=== PATIENT | female | born 1970 | race African-American/Black ===

== ENCOUNTER → 2017-07-23 | Outpatient (CLI) | payer OTHER ==
--- NOTE | 2017-07-23 11:31 | Diagnostic Imaging Report ---
PROCEDURE:CHEST 2 VIEWS TECHNIQUE:PA and lateral chest INDICATION:Bronchitis COMPARISON:None. FINDINGS: Normal lungs. No pleural effusions. Normal heart size, mediastinal contour, pulmonary vasculature. Normal skeleton. CONCLUSION: Normal study. Dictated by: Jeffrey Corbin M.D. on 07/23/2017 at 11:32 Electronically approved by: Jeffrey Corbin M.D. on 07/23/2017 at 11:32
== END ==
LOC: RAD 10:50
PROVIDERS: ATTEND Family Medicine
DX: J40 Bronchitis, not specified as acute or chronic (principal)
CPT/HCPCS: 71046

== ENCOUNTER 2019-01-10 03:15 | Emergency (ER) | payer OTHER ==
[~2019-01-10] VITALS: Ht 162.6 cm; Wt 70.3 kg
--- OUTSIDE RECORDS SUMMARY | 2019-01-10 03:17 | XMS REPORT | Clinical Summary ---
Author Author [facility] Address Unknown Phone Unavailable Care Team Providers Care Central Service Tech Name Role Phone Darrin Ly MD PCP Allergies Comments Active Allergy Reactions Severity Noted Date Metronidazole 04/04/2016 Hydrocodone-Acetaminophen 04/04/2016 Medications End Date Status Medication Sig Dispensed Refills Start Date Active B INFANTIS/B ANI/B MAZIN/B Take 1 tablet 0 BIFID (PROBIOTIC 4X ORAL) by mouth. Active MULTIVIT-MIN #14/FOLIC Take by 0 ACID (MULTIVIT W-MIN mouth. 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 Office Visit Orthopedic Surgery Elayne Arthur MA Right knee pain, unspecified chronicity (Primary Dx) 01/23/2018 Orders Only Orthopedic Surgery after 01/09/2018 Family History Medical History Relation Name Comments Alcohol abuse Father Artem Heart disease Father Artem Hypertension Father Artem Diabetes Maternal Clevie Grandmother Relation Name Status Comments Father Artem Alive Maternal Grandmother Clevie Mother Alive diabetes Heart disease Social History Date Tobacco Use Types Packs/Day Years Used Never Smoker Smokeless Tobacco: Never Used Drinks/Week oz/Week Comments Alcohol Use 4 Shots of liquor 4.0 4 liquor weekly Yes Sex Assigned at Date Recorded Not on file Industry Job Start Date Occupation Not on file Not on file Not on file Travel End Travel History Travel Start No recent travel history available. Last Filed Vital Signs Reading Time Taken Comments Vital Sign - - Blood Pressure - - Pulse - - Temperature - - Respiratory Rate - - Oxygen Saturation - - Inhaled Oxygen Concentration 77.1 kg (170 lb) 01/26/2018 10:59 AM CDT Weight 162.6 cm (5' 4") 01/26/2018 10:59 AM CDT Height 29.18 01/26/2018 10:59 AM CDT Body Mass Index Plan of Treatment Health Maintenance Due Date Last Done Comments INFLUENZA VACCINE 11/19/2018 CERVICAL CANCER SCREENING 07/26/2019 07/25/2016 Implants Device Identifier Shelf Expiration Date Model / Serial / Lot Implanted Type Area Manufactur er 05/21/2017 [id number] / / [id number] [employer]tainr [employer]sm[employer] Visceral - Surgical N/A: N/A ADEPT [id number] Implants; Implanted: 07/25/2016 at [facility] Expanders; HOSPITAL (Quantity not on file) Extenders; Surgical Wires Procedures Comments Procedure Name Priority Date/Time Associated Diagnosis XR KNEE 4+ VW RIGHT Routine 01/26/2018 Right knee pain, 11:10 AM CDT unspecified chronicity after 01/09/2018 Results * XR Knee 4+ Vw Right (01/26/2018 11:10 AM CDT) Specimen Narrative Performed At [facility] Four views (standing bilateral weightbearing AP and 45 degree flexion PA, Merchant, and lateral views) of the right knee are obtained and reviewed today. There is mild degenerative change of the medial tibiofemoral joint spaces with marginal osteophytes.No fractures or loose bodies are seen. No abnormal soft tissue calcifications are seen. Performing Organization Address City/State/Zipcode Phone Number [facility] [address] [place] [address] after 01/09/2018 Insurance Type Payer Benefit Subscriber ID Effective Phone Address Plan / Dates Group HMO/PPO [employer] xxxxxxxxx 2015-P THCARE resent CHOICE/CHO ICE + Advance Directives For more information, please contact: [phone] Patient Sample Cutter Explanation Type Date Recorded Advance Directives, Living Will and Medical Power of Software Clerk
--- OUTSIDE RECORDS SUMMARY | 2019-01-10 03:17 | XMS REPORT ---
[facility] Address Unknown Phone Unavailable Care Team Providers Care Plastic Extrusion Operator Name Role Phone JESSICA NIETO Unavailable Unavailable Problems This patient has no known problems. Allergies, Adverse Reactions, Alerts This patient has no known allergies or adverse reactions. Medications This patient has no known medications. Results Test Description Test Time Test Comments Text Results Atomic Results Result Comments CHEST 2 VIEWS [place] [address] Patient Name: DAVE CONLEY MR #: [id number] : 1970 Age/Sex: 46/F Req #: [id number] Adm Physician: Ordered by: JESSICA NIETO MD Report #: [id number] Location: [facility] Room/Bed: Procedure: [id number] DX/CHEST 2 VIEWS Exam Date: 07/23/17 Exam Time: 1105 REPORT STATUS: Signed PROCEDURE: CHEST 2 VIEWS TECHNIQUE: PA and lateral chest INDICATION: Bronchitis COMPARISON: None. FINDINGS: Normal lungs. No pleural effusions. Normal heart size, mediastinal contour, pulmonary vasculature. Normal skeleton. CONCLUSION: Normal study. Dictated by: Zackery Horowitz M.D. on 07/23/2017 at 11:32 Electronically approved by: Zackery Horowitz M.D. on 07/23/2017 at 11:32 Dictated By: ZACKERY HOROWITZ MD 113 Transcribed By: IKE on 07/23/171131 COPY TO: JESSICA NIETO MD
--- OUTSIDE RECORDS SUMMARY | 2019-01-10 03:17 | XMS REPORT | Continuity of Care Document ---
Author Author [facility] Organization [facility] Address Unknown Phone Unavailable Care Team Providers Care Inventory Control Associate Name Role Phone [employer] Information SIVI Unavailable Unavailable Problems Problem Status Onset Date Classification Date Reported Comments Source R10.9 - UNSPECIFIED ABDOMINAL PAIN Active 04/12/2016 [facility] Z12.31 - ENCNTR SCREEN MAMMOGRAM FOR MA Active 03/25/2016 [facility] Discharge Diagnosis: Acute lower UTI (urinary tract infection) 03/22/2016 03/25/2016 [facility] ABDOMINAL PN Active 02/21/2016 [facility] 466.0 - ACUTE BRONCHITI Active 08/29/2011 [facility] Pain Active Problem 12/09/2012 [facility] Acute lower urinary tract infection (disorder) Active Problem 04/26/2016 [facility] Pain (finding) Active Problem 04/26/2016 [facility] Medications Medication Details Route Status Patient Instructions Ordering Provider Order Date Source Acetaminophen 300 MG / Codeine Phosphate 30 MG Oral Tablet [Tylenol with Codeine #3] 1 - 2 tab, PO, Q6H, PRN Pain, X 4 day, # 32 tab, 0 Refill(s) Active 03/22/2016 [facility] Acetaminophen 300 MG / Codeine Phosphate 30 MG Oral Tablet [Tylenol with Codeine #3] 2 tab, Route: PO, Drug Form: TAB, Dosing Weight 72.727, kg, ONCE, STAT, Start date: 03/22/16 15:24:00 IRRIGATION TECHNICIAN, Stop date: 03/22/16 15:24:00 CSTNotes: Do not exceed 4gm/day of acetaminophen. (Same as: Tylenol with Codeine # 3) Inactive 03/22/2016 [facility] Rocephin 1 gm, Route: IVPB, Drug form: PDR/INJ, ONCE, Dosing Weight 72.727, kg, Priority: STAT, Start date: 03/22/16 15:23:00 IRRIGATION TECHNICIAN, Stop date: 03/22/16 15:23:00 CSTNotes: (Same As: Rocephin). Use with 100 mL NS and infuse over 30 min MEDICATION WASTE Product Size: 1000 mg Product Wasted: ___ mg Inactive 03/22/2016 [facility] Sodium Chloride 0.154 MEQ/ML Injectable Solution 1,000 mL, 1000 ml/hr, Infuse Over: 1 hr, Route: IV, 1,000, Drug form: INJ, ONCE, Priority: STAT, Dosing Weight 72.727 kg, Start date: 03/22/16 15:23:00 IRRIGATION TECHNICIAN, Duration: 1 doses or times, Stop date: 03/22/16 15:23:00 IRRIGATION TECHNICIAN Inactive 03/22/2016 [facility] Ciprofloxacin 500 MG Oral Tablet [Cipro] 500 mg=1 tab, PO, Q12H, X 10 day, # 20 tab, 0 Refill(s) Active 03/22/2016 [facility] Ketorolac 60 mg, Route: IM, Drug form: INJ, ONCE, Dosing Weight 72.727, kg, Priority: STAT, Start date: 03/22/16 14:06:00 IRRIGATION TECHNICIAN, Stop date: 03/22/16 14:06:00 IRRIGATION TECHNICIAN Inactive 03/22/2016 [facility] Allergies, Adverse Reactions, Alerts Substance Category Reaction Severity Reaction type Status Date Reported Comments Source Flagyl Assertion Drug allergy Active [facility] Vicodin Assertion Drug allergy Active [facility] Immunizations No Data Provided for This Section Results Order Name Results Value Reference Range Date Interpretation Comments Source CHEM PANEL Lipase Lvl 154 73 - 393 03/22/2016 [facility] CHEM PANEL Globulin 5.2 2.7 - 4.2 03/22/2016 [facility] CHEM PANEL A/G Ratio 0.7 0.7 - 1.6 03/22/2016 [facility] CHEM PANEL B/C Ratio 18 6 - 25 03/22/2016 [facility] CHEM PANEL AGAP 16.4 10.0 - 20.0 03/22/2016 [facility] CHEM PANEL eGFR 123 03/22/2016 Result Comment: The eGFR is calculated using the CKD-EPI formula. In most young, healthy individuals the eGFR will be >90 mL/min/1.73m2. The eGFR declines with age. An eGFR of 60-89 may be normal in some populations, particularly the elderly, for whom the CKD-EPI formula has not been extensively validated. Use of the eGFR is not recommended in the following populations:

Individuals with unstable creatinine concentrations, including patients and those with serious co-morbid conditions.

Patients with extremes in muscle mass or diet.

The data above are obtained from the National Kidney Disease Education Program (NKDEP) which additionally recommends that when the eGFR is used in patients with extremes of body mass index for purposes of drug dosing, the eGFR should be multiplied by the estimated BMI. [facility] CHEM PANEL Total Protein 8.8 6.4 - 8.4 03/22/2016 [facility] CHEM PANEL Albumin Lvl 3.6 3.5 - 5.0 03/22/2016 [facility] CHEM PANEL AST 35 0 - 37 03/22/2016 [facility] CHEM PANEL ALT 58 0 - 65 03/22/2016 [facility] CHEM PANEL Alk Phos 117 39 - 136 03/22/2016 [facility] CHEM PANEL Bili Total 0.5 0.2 - 1.3 03/22/2016 [facility] CHEM PANEL Creatinine Lvl 0.67 0.50 - 1.40 03/22/2016 [facility] CHEM PANEL BUN 12 7 - 22 03/22/2016 [facility] CHEM PANEL Glucose Lvl 119 70 - 99 03/22/2016 [facility] CHEM PANEL Potassium Lvl 3.4 3.5 - 5.1 03/22/2016 [facility] CHEM PANEL Sodium Lvl 138 135 - 145 03/22/2016 [facility] CHEM PANEL Chloride Lvl 100 95 - 109 03/22/2016 [facility] CHEM PANEL Calcium Lvl 10.1 8.5 - 10.5 03/22/2016 [facility] CHEM PANEL CO2 25 24 - 32 03/22/2016 [facility] HEMATOLOGY MCHC 32.7 32.0 - 36.0 03/22/2016 [facility] HEMATOLOGY MCH 24.7 27.0 - 31.0 03/22/2016 [facility] HEMATOLOGY MCV 75.6 80.0 - 98.0 03/22/2016 [facility] HEMATOLOGY Hct 34.1 36.0 - 48.0 03/22/2016 [facility] HEMATOLOGY Hgb 11.1 12.0 - 16.0 03/22/2016 [facility] HEMATOLOGY RBC 4.51 4.20 - 5.40 03/22/2016 [facility] HEMATOLOGY WBC 12.7 3.7 - 10.4 03/22/2016 [facility] HEMATOLOGY RDW 21.0 11.5 - 14.5 03/22/2016 [facility] HEMATOLOGY MPV 8.1 7.4 - 10.4 03/22/2016 [facility] HEMATOLOGY Platelet 495 133 - 450 03/22/2016 [facility] HEMATOLOGY Microcyte 1+ *ABN* (03/22/16 1:00 PM) None Seen 03/22/2016 [facility] HEMATOLOGY Eosinophils # 0.1 0.0 - 0.5 03/22/2016 [facility] HEMATOLOGY Lymphocytes # 1.5 1.0 - 5.5 03/22/2016 [facility] HEMATOLOGY Segs-Bands # 9.0 1.5 - 8.1 03/22/2016 [facility] HEMATOLOGY Basophils 0.3 0.0 - 1.0 03/22/2016 [facility] HEMATOLOGY Eosinophils 0.4 0.0 - 4.0 03/22/2016 [facility] HEMATOLOGY Monocytes 17.0 2.0 - 12.0 03/22/2016 [facility] HEMATOLOGY Lymphocytes 11.7 20.0 - 40.0 03/22/2016 [facility] HEMATOLOGY Segs 70.6 45.0 - 75.0 03/22/2016 [facility] HEMATOLOGY Monocytes # 2.2 0.0 - 0.8 03/22/2016 [facility] URINE AND STOOL UA Nitrite Negative (03/22/16 1:00 PM) Negative 03/22/2016 [facility] URINE AND STOOL UA Urobilinogen 0.2 0.1 - 1.0 03/22/2016 [facility] URINE AND STOOL UA Leuk Est Small *ABN* (03/22/16 1:00 PM) Negative 03/22/2016 [facility] URINE AND STOOL UA Spec Grav 1.021 <=1.030 03/22/2016 [facility] URINE AND STOOL UA pH 6.0 5.0 - 8.0 03/22/2016 [facility] URINE AND STOOL UA Glucose Negative (03/22/16 1:00 PM) Negative 03/22/2016 [facility] URINE AND STOOL UA Protein 30 mg/dL Negative mg/dL 03/22/2016 [facility] URINE AND STOOL UA Ketones Trace *ABN* (03/22/16 1:00 PM) Negative 03/22/2016 [facility] URINE AND STOOL UA Blood Small *ABN* (03/22/16 1:00 PM) Negative 03/22/2016 [facility] URINE AND STOOL UA Bili Negative *NA* (03/22/16 1:00 PM) Negative 03/22/2016 [facility] URINE AND STOOL UA Color Yellow *NA* (03/22/16 1:00 PM) Yellow 03/22/2016 [facility] URINE AND STOOL UA Turbidity Slight Cloudy (03/22/16 1:00 PM) Clear 03/22/2016 [facility] URINE AND STOOL UA Mucus Moderate /LPF None Seen /LPF 03/22/2016 [facility] URINE AND STOOL UA Bacteria Moderate /HPF None Seen /HPF 03/22/2016 [facility] URINE AND STOOL UA WBC 11-20 /HPF None Seen /HPF 03/22/2016 [facility] URINE AND STOOL UA RBC 3-5 /HPF 0 - 2 03/22/2016 [facility] URINE AND STOOL UA Sq Epi Moderate /LPF Few /LPF 03/22/2016 [facility] URINE CHEM U Preg Negative (03/22/16 1:00 PM) Negative 03/22/2016 [facility] Pathology Reports No Data Provided for This Section Diagnostic Reports Report Value Date Source Abdomen/Pelvis w/wo IV contrast CT CT of the abdomen and pelvis without and with contrast Clinical history: R10.9 Unspecified abdominal pain. Sex: Female. : 1970. Technique: CT of the abdomen and pelvis with intravenous contrast using 100 cc of Omnipaque 300 including multiplanar computer reformations. Total Dose Length Product: 1567. COMPARISON: March 26, 2016 ultrasound. Hysterosalpingogram on January 01, 2015. Findings: Lung bases show left basilar subsegmental atelectasis. Small hiatus hernia is present. The liver, gallbladder, spleen appear unremarkable. Adrenal glands and pancreas are unremarkable. A linear defect within the periphery of the mid pole of the right kidney association with hyperdense linear perinephric foci suggestive of small amount of hematoma and possible site of prior intervention. No inflammatory changes to suggest an acute component. No mass lesion. Left kidney is unremarkable. Stomach, small bowel, colon appear unremarkable. Appendix is not visualized, however no inflammatory changes to suggest appendicitis. Numerous uterine fibroids identified. Serpiginous fluids density tubular structure is compatible with right hydrocele salpinx. Additionally, serpiginous tubular structure within the left hemipelvis is also present suggestive of an additional hydrosalpinx. Follicles within the left ovaries noted. Free fluid is present within the pelvis. Bladder is unremarkable. No free air. IVC and aorta appear unremarkable. Osseous structures are unremarkable. Impression: 1. Findings suggestive of bilateral hydrosalpinx. Correlate with physical exam to exclude a superimposed infection. 2. Uterine fibroids. 3. Defect within the midpole of the right kidney associated with small amount of nonacute perinephric hematoma may be reflective of prior instrumentation. Correlate with surgical history. 04/23/2016 [facility] Pelvis w Pelvis Transvaginal US Exam: Pelvic ultrasound. Reason for Exam: Pelvic mass Comparison Exam: MRI 01/28/2007 and ultrasound 01/01/2005 Discussion: Multiple axial and sagittal images of the pelvis were obtained transabdominally and transvaginally. The uterus is enlarged and measures 16.7 cm in length. Numerous fibroids are identified. This is a chronic finding. Endometrial stripe cannot be accurately measured secondary to the multiple fibroids. Within the right adnexa is a complex cystic structure measuring 9.5 x 9.3 x 7.3 cm. This cystic structure likely contains the right ovary. Note is made of diminished venous flow and arterial flow. These findings are suggestive of partial torsion. The left ovary measures 2.7 x 2.3 x 1.6 cm. It is of normal echogenicity without focal masses. Doppler and waveform evaluations of the left ovary are unremarkable. Mild free fluid seen within the pelvic cul-de-sac. The bladder is unremarkable in appearance. Findings discussed with Dr. Hickman on 03/26/2016 at 1757 hours. Impression: 1. Complex cystic structure seen within the right adnexa measuring up to 9.5 cm which likely contains the ovary itself. Note is made of diminished venous flow and arterial flow. These findings are suggestive of partial torsion. 03/26/2016 [facility] Digital Mammo Screening Rola MA - DIGITAL MAMMO SCREENING ROLA MA BILATERAL DIGITAL SCREENING MAMMOGRAM WITH CAD: 03/26/2016 CLINICAL: Routine. Current study was evaluated with a Computer Aided Detection (CAD) system. No prior exams were available for comparison. The tissue of both breasts is heterogeneously dense, which could obscure detection of small masses. There are benign calcifications in the left breast. No significant masses, calcifications, or other findings are seen in either breast. IMPRESSION: BENIGN There is no mammographic evidence of malignancy. A 1 year screening mammogram is recommended. Professional services are provided by the [facility] M.D[facility] Division of Diagnostic Imaging. Pavel Nevarez M.D., cm/penrad:04/08/2016 15:48:37 Cafeteria Director: Margo JAFFE)(Coral), [facility] This exam was dictated and interpreted by [id number] for KAREN Delatorre 15. letter sent: Normal exam Mammogram BI-RADS: 2 Benign 03/26/2016 [facility] Knee AP and lateral Examination: Right knee, 2 views History: KNEE SWELLING Comparison: None. Findings: Multiple views of the right knee show no acute bony fracture, joint dislocation, or suspicious osseous lesion. No significant joint effusion is seen. The soft tissues are unremarkable. IMPRESSION: No significant abnormality of the right knee. 12/07/2012 [facility] Consultation Notes No Data Provided for This Section Discharge Summaries No Data Provided for This Section History and Physicals No Data Provided for This Section Vital Signs Vital Sign Value Date Comments Source Temperature Oral (F) 98.6 F 03/22/2016 [facility] Systolic (mm Hg) 117 03/22/2016 [facility] Diastolic (mm Hg) 73 03/22/2016 [facility] Respitory Rate 16 03/22/2016 [facility] Systolic (mm Hg) 120 03/22/2016 [facility] Diastolic (mm Hg) 68 03/22/2016 [facility] Respitory Rate 16 03/22/2016 [facility] Temperature Oral (F) 100.6 F 03/22/2016 [facility] Respitory Rate 18 03/22/2016 [facility] Weight 72.727 03/22/2016 [facility] BMI Calculated 25.11 03/22/2016 [facility] Heart Rate 108 03/22/2016 [facility] Systolic (mm Hg) 125 03/22/2016 [facility] Diastolic (mm Hg) 83 03/22/2016 [facility] Height 170.18 cm 03/22/2016 [facility] Encounters Location Location Details Encounter Type Encounter Number Reason For Visit Attending Provider ADM Date DC Date Status Source OD [id number] 466.0 - ACUTE BRONCHITI VU EMILIA [facility]/2011 [id number] Bessie Damon 03/22/2016 03/22/2016 [facility] [id number] Cristofer Hickman 03/26/2016 [facility] Out[facility] Di[facility] Services [id number] Nabor Gabriel [facility]/23[facility]2016 [facility] Procedures No Data Provided for This Section Assessment and Plan No Data Provided for This Section Plan of Care No Data Provided for This Section Social History Social History Date Source Social History TypeResponse Smoking Status Never smoker; Exposure to Tobacco Smoke None; Cigarette Smoking Last 365 Days No; Reg Smoking Cessation Counseling No [facility]22[facility] Social History TypeResponse Smoking Status Never smoker; Exposure to Tobacco Smoke None; Cigarette Smoking Last 365 Days No; Reg Smoking Cessation Counseling No 03/22/2016 [facility] Family History No Data Provided for This Section Advance Directives No Data Provided for This Section Functional Status No Data Provided for This Section
--- OUTSIDE RECORDS SUMMARY | 2019-01-10 03:17 | XMS REPORT | Summary of Care ---
Author Author [facility] Organization [facility] Address Unknown Phone Unavailable Encounter HQ Encntr_alipablo(FIN) [id number] Date(s): 03/26/16 - 03/26/16 [facility] [address] [place] [phone] Discharge Disposition: Home or Self Care Attending Physician: Cristofer Hickman MD Vital Signs No data available for this section Problem List Condition Effective Dates Status Health Status Informant Acute lower UTI Active (urinary tract infection)(Confirmed ) Pain(Confirmed) Active Allergies, Adverse Reactions, Alerts Substance Reaction Severity Status Flagyl Active Vicodin Active Medications No data available for this section Results No data available for this section Immunizations No data available for this section Procedures No data available for this section Social History Social History Type Response Smoking Status Never smoker; Exposure to Tobacco Smoke None; Cigarette Smoking Last 365 Days No; Reg Smoking Cessation Counseling No Assessment and Plan No data available for this section
--- OUTSIDE RECORDS SUMMARY | 2019-01-10 03:17 | XMS REPORT | Summary of Care ---
Author Author [facility] [place] Organization [facility] [place] Address Unknown Phone Unavailable Encounter [facility] [email or web address]_alipablo(FIN) [id number] Date(s): 04/23/16 - 04/23/16 [facility] [place] [address] [place] [phone] Discharge Disposition: Home or Self Care Attending Physician: Nabor Gabriel MD Vital Signs No data available for [...]
--- OUTSIDE RECORDS SUMMARY | 2019-01-10 03:17 | XMS REPORT | CCD ---
Author Author [employer] Organization [facility] [place] Address Unknown Phone Unavailable Care Team Providers Care Salesperson New Cars Name Role Phone Darrin Ly CP Allergies, Adverse Reactions, Alerts Substance Reaction Status Flagyl Active Vicodin Active Problem List Condition Effective Dates Status Pain Active
--- OUTSIDE RECORDS SUMMARY | 2019-01-10 03:17 | XMS REPORT | Summary of Care ---
Author Author [facility] Organization [facility] Address Unknown Phone Unavailable Encounter ANDREW Nguyen(LUIS) [id number] Date(s): 03/22/16 - 03/22/16 [facility] [address] [employer] provided by [facility] [place] [address]- Discharge Diagnosis: Acute lower UTI (urinary tract infection) Discharge Disposition: Home or Self Care Attending Physician: Bessie Damon MD Vital Signs 1 2 3 Most recent to oldest [Reference Range]: 170.18 cm (03/22/16 12:45 PM) Height 98.6 DegF (03/22/16 5:45 PM) 100.6 DegF *HI* (03/22/16 3:19 PM) Temperature Oral [96.4-99.1 DegF] 117/73 mmHg (03/22/16 5:45 PM) 120/68 mmHg (03/22/16 3:19 PM) 125/83 mmHg (03/22/16 12:45 PM) Blood Pressure [90-140/60-90 mmHg] 16 BRMIN (03/22/16 5:45 PM) 16 BRMIN (03/22/16 3:19 PM) 18 BRMIN (03/22/16 12:45 PM) Respiratory Rate [14-20 BRMIN] 108 bpm *HI* (03/22/16 12:45 PM) Peripheral Pulse Rate [60-100 bpm] 72.727 kg (03/22/16 12:45 PM) Weight 25.11 m2 (03/22/16 12:45 PM) Body Mass Index Problem List Condition Effective Dates Status Health Status Informant Acute lower UTI Active (urinary tract infection)(Confirmed ) Pain(Confirmed) Active Allergies, Adverse Reactions, Alerts Substance Reaction Severity Status Flagyl Active Vicodin Active Medications Cipro 500 mg oral tablet 500 mg=1 tab, PO, Q12H, X 10 day, # 20 tab, 0 Refill(s) Start Date: 03/22/16 Stop Date: 04/01/16 Status: Ordered ketOROLAC 60 mg, Route: IM, Drug form: INJ, ONCE, Dosing Weight 72.727, kg, Priority: STAT , Start date: 03/22/16 14:06:00 DIRECTOR OF CARDIOLOGY SERVICE LINE, Stop date: 03/22/16 14:06:00 DIRECTOR OF CARDIOLOGY SERVICE LINE Start Date: 03/22/16 Stop Date: 03/22/16 Status: Completed Rocephin 1 gm, Route: IVPB, Drug form: PDR/INJ, ONCE, Dosing Weight 72.727, kg, Priority: STAT, Start date: 03/22/16 15:23:00 DIRECTOR OF CARDIOLOGY SERVICE LINE, Stop date: 03/22/16 15:23:00 DIRECTOR OF CARDIOLOGY SERVICE LINE Notes: (Same As: Rocephin).Use with 100 mL NS and infuse over 30 min MEDICA TION WASTE Product Size: 1000 mgProduct Wasted: ___ mg Start Date: 03/22/16 Stop Date: 03/22/16 Status: Completed Sodium Chloride 0.9% (Bolus) IV 1,000 mL, 1000 ml/hr, Infuse Over: 1 hr, Route: IV, 1,000, Drug form: INJ, ONCE, Priority: STAT, Dosing Weight 72.727 kg, Start date: 03/22/16 15:23:00 DIRECTOR OF CARDIOLOGY SERVICE LINE, Dur ation: 1 doses or times, Stop date: 03/22/16 15:23:00 DIRECTOR OF CARDIOLOGY SERVICE LINE Start Date: 03/22/16 Stop Date: 03/22/16 Status: Completed Tylenol with Codeine #3 oral tablet 1 - 2 tab, PO, Q6H, PRN Pain, X 4 day, # 32 tab, 0 Refill(s) Start Date: 03/22/16 Stop Date: 03/26/16 Status: Ordered Tylenol with Codeine #3 oral tablet 2 tab, Route: PO, Drug Form: TAB, Dosing Weight 72.727, kg, ONCE, STAT, Start da te: 03/22/16 15:24:00 DIRECTOR OF CARDIOLOGY SERVICE LINE, Stop date: 03/22/16 15:24:00 DIRECTOR OF CARDIOLOGY SERVICE LINE Notes: Do not exceed 4gm/day of acetaminophen. (Same as: Tylenol with Codeine # 3) Start Date: 03/22/16 Stop Date: 03/22/16 Status: Completed Results ELECTROLYTES Most recent to 1 oldest [Reference Range]: Sodium Lvl [135-145 138 mEq/L mEq/L] (03/22/16 1:00 PM) Potassium Lvl 3.4 mEq/L [3.5-5.1 mEq/L] *LOW* (03/22/16 1:00 PM) Chloride Lvl [95-109 100 mEq/L mEq/L] (03/22/16 1:00 PM) CO2 [24-32 mEq/L] 25 mEq/L (03/22/16 1:00 PM) AGAP [10.0-20.0 16.4 mEq/L mEq/L] (03/22/16 1:00 PM) CHEM PANEL Most recent to 1 oldest [Reference Range]: Creatinine Lvl 0.67 mg/dL [0.50-1.40 mg/dL] (03/22/16 1:00 PM) eGFR 123 mL/min/1.73m2 1 *NA* (03/22/16 1:00 PM) BUN [7-22 mg/dL] 12 mg/dL (03/22/16 1:00 PM) B/C Ratio [6-25] 18 (03/22/16 1:00 PM) Glucose Lvl [70-99 119 mg/dL mg/dL] *HI* (03/22/16 1:00 PM) Total Protein 8.8 g/dL [6.4-8.4 g/dL] *HI* (03/22/16 1:00 PM) Albumin Lvl [3.5-5.0 3.6 g/dL g/dL] (03/22/16 1:00 PM) Globulin [2.7-4.2 5.2 g/dL g/dL] *HI* (03/22/16 1:00 PM) A/G Ratio [0.7-1.6] 0.7 (03/22/16 1:00 PM) Calcium Lvl 10.1 mg/dL [8.5-10.5 mg/dL] (03/22/16 1:00 PM) ALT [0-65 unit/L] 58 unit/L (03/22/16 1:00 PM) AST [0-37 unit/L] 35 unit/L (03/22/16 1:00 PM) Alk Phos [39-136 117 unit/L unit/L] (03/22/16 1:00 PM) Bili Total [0.2-1.3 0.5 mg/dL mg/dL] (03/22/16 1:00 PM) Lipase Lvl [73-393 154 unit/L unit/L] (03/22/16 1:00 PM) 1Result Comment: The eGFR is calculated using the [...] from the National Kidney Disease Education Program ( NKDEP) which additionally recommends that when the eGFR is used in patients with extremes of body mass index for purposes of drug dosing, the eGFR should be mul tiplied by the estimated BMI. URINE CHEM Most recent to 1 oldest [Reference Range]: U Preg [Negative] Negative (03/22/16 1:00 PM) URINE AND STOOL Most recent to 1 oldest [Reference Range]: UA Turbidity [Clear] Slight Cloudy (03/22/16 1:00 PM) UA Color [Yellow] Yellow *NA* (03/22/16 1:00 PM) UA pH [5.0-8.0] 6.0 (03/22/16 1:00 PM) UA Spec Grav 1.021 [<=1.030] *NA* (03/22/16 1:00 PM) UA Glucose Negative [Negative] (03/22/16 1:00 PM) UA Blood [Negative] Small *ABN* (03/22/16 1:00 PM) UA Ketones Trace [Negative] *ABN* (03/22/16 1:00 PM) UA Protein [Negative 30 mg/dL mg/dL] *ABN* (03/22/16 1:00 PM) UA Urobilinogen 0.2 EU/dL [0.1-1.0 EU/dL] (03/22/16 1:00 PM) UA Bili [Negative] Negative *NA* (03/22/16 1:00 PM) UA Leuk Est Small [Negative] *ABN* (03/22/16 1:00 PM) UA Nitrite Negative [Negative] (03/22/16 1:00 PM) UA WBC [None Seen 11-20 /HPF /HPF] *ABN* (03/22/16 1:00 PM) UA RBC [0-2 /HPF] 3-5 /HPF *ABN* (03/22/16 1:00 PM) UA Bacteria [None Moderate /HPF Seen /HPF] (03/22/16 1:00 PM) UA Sq Epi [Few /LPF] Moderate /LPF *ABN* (03/22/16 1:00 PM) UA Mucus [None Seen Moderate /LPF /LPF] *ABN* (03/22/16 1:00 PM) HEMATOLOGY Most recent to 1 oldest [Reference Range]: WBC [3.7-10.4 K/CMM] 12.7 K/CMM *HI* (03/22/16 1:00 PM) RBC [4.20-5.40 4.51 M/CMM M/CMM] (03/22/16 1:00 PM) Hgb [12.0-16.0 g/dL] 11.1 g/dL *LOW* (03/22/16 1:00 PM) Hct [36.0-48.0 %] 34.1 % *LOW* (03/22/16 1:00 PM) MCV [80.0-98.0 fL] 75.6 fL *LOW* (03/22/16 1:00 PM) MCH [27.0-31.0 pg] 24.7 pg *LOW* (03/22/16 1:00 PM) MCHC [32.0-36.0 32.7 g/dL g/dL] (03/22/16 1:00 PM) RDW [11.5-14.5 %] 21.0 % *HI* (03/22/16 1:00 PM) Platelet [133-450 495 K/CMM K/CMM] *HI* (03/22/16 1:00 PM) MPV [7.4-10.4 fL] 8.1 fL (03/22/16 1:00 PM) Segs [45.0-75.0 %] 70.6 % (03/22/16 1:00 PM) Lymphocytes 11.7 % [20.0-40.0 %] *LOW* (03/22/16 1:00 PM) Monocytes [2.0-12.0 17.0 % %] *HI* (03/22/16 1:00 PM) Eosinophils [0.0-4.0 0.4 % %] (03/22/16 1:00 PM) Basophils [0.0-1.0 0.3 % %] (03/22/16 1:00 PM) Segs-Bands # 9.0 K/CMM [1.5-8.1 K/CMM] *HI* (03/22/16 1:00 PM) Lymphocytes # 1.5 K/CMM [1.0-5.5 K/CMM] (03/22/16 1:00 PM) Monocytes # [0.0-0.8 2.2 K/CMM K/CMM] *HI* (03/22/16 1:00 PM) Eosinophils # 0.1 K/CMM [0.0-0.5 K/CMM] (03/22/16 1:00 PM) Microcyte [None 1+ Seen] *ABN* (03/22/16 1:00 PM) Immunizations No data available for this section Procedures No data available for this section Social History Social History Type Response Smoking Status Never smoker; Exposure to Tobacco Smoke None; Cigarette Smoking Last 365 Days No; Reg Smoking Cessation Counseling No Assessment and Plan No data available for this section
[2019-01-10 04:11] LABS: BASOPHILS % 0.2 % (0.0-1.0); EOSINOPHILS % 0.2 % (0.0-6.0); HEMATOCRIT 41.3 % (34.2-44.1); HEMOGLOBIN 13.2 g/dL (12.0-16.0); LYMPHOCYTES # (AUTO) 2.1 (1.0-3.2); LYMPHOCYTES % 16.6 % (18.0-39.1); MEAN CORPUSCULAR HEMOGLOBIN 27.9 pg (28-32); MEAN CORPUSCULAR VOLUME 87.3 fL (81-99); MONOCYTES # (AUTO) 0.5 (0.2-0.8); MONOCYTES % 3.6 % (4.4-11.3); NEUTROPHILS # (AUTO) 10.1 (2.1-6.9); PLATELET COUNT 540 x10e3/uL (140-360); RED BLOOD COUNT 4.73 x10e6/uL (3.6-5.1); RED CELL DISTRIBUTION WIDTH 13.2 % (11.7-14.4)
[2019-01-10 04:30] LABS: ANION GAP 19.3 mmol/L (8-16); BLOOD UREA NITROGEN 18 mg/dL (7-26); BUN/CREATININE RATIO 21 (6-25); CALCIUM 10.3 mg/dL (8.4-10.2); CARBON DIOXIDE 23 mmol/L (22-29); CHLORIDE 106 mmol/L (98-107); CREATINE KINASE 94 IU/L (29-168); CREATININE, SERUM 0.86 mg/dL (0.57-1.11); EST GLOMERULAR FILTRATION RATE > 60 ML/MIN (60-); GLUCOSE 110 mg/dL (74-118); POTASSIUM 5.3 mmol/L (3.5-5.1); SODIUM 143 mmol/L (136-145)
--- NOTE | 2019-01-10 04:50 | Diagnostic Imaging Report ---
EXAMINATION: Head CT without contrast. HISTORY:Dizziness, headache. COMPARISON:None. TECHNIQUE: Multidetector axial images were obtained from the foramen magnum to the vertex without contrast. The images were reconstructed using brain and bone algorithms. Thin section brain images were reformatted into coronal and sagittal planes. Dose modulation, iterative reconstruction, and/or weight based adjustment of the mA/kV was utilized to reduce the radiation dose to as low as reasonably achievable. Intravenous contrast: None IMAGE QUALITY: Acceptable. FINDINGS: Skull/scalp: No lytic or blastic. lesions. No surgical changes. Parenchyma: Focal hypodensity in right caudate head, lentiform nucleus that extends to the posterior limb of right internal capsule represents chronic lacunar infarct. No acute hemorrhage, mass or acute major vascular territorial infarct. Arteries: No density suggestive of thrombosis. Dural sinuses: No abnormal density suggestive of thrombosis. Ventricles: No hydrocephalus or displacement. Extra-axial spaces: No abnormal density. Brain volume: Normal for age. Craniocervical junction: No mass, Chiari malformation, or basilar invagination. Sella: Mild enlargement of partial empty sella. Paranasal/mastoid sinuses: Imaged portions unremarkable. IMPRESSION: 1. No acute intracranial abnormality, particularly no acute hemorrhage, mass or acute major vascular territorial infarct. 2. Chronic lacunar infarct in right caudate head, lentiform nucleus/posterior limb of right internal capsule. Signed by: Dr. Soraida Benitez M.D. on 01/10/2019 4:45 AM
== END 2019-01-10 05:18 | disposition home or self-care (01) ==
LOC: ER 03:15
DX: R42 Dizziness and giddiness (principal); E87.5 Hyperkalemia
CPT/HCPCS: 36415; 70450; 80048; 82550; 82553; 84484; 85025; 93005; 99284